=== PATIENT | male | born 1985 | race Caucasian/White ===

== ENCOUNTER 2017-06-06 05:44 | Emergency (ER) | payer BC ==
[2017-06-06 10:23] VITALS: BP 128/74
== END 2017-06-06 10:23 | disposition home or self-care (01) ==
LOC: ED 05:44
DX: S01.01XA Laceration without foreign body of scalp, initial encounter (principal); G93.9 Disorder of brain, unspecified; J45.909 Unspecified asthma, uncomplicated; W06.XXXA Fall from bed, initial encounter; Y93.89 Activity, other specified; Y92.89 Other specified places as the place of occurrence of the external cause; Y99.8 Other external cause status
CPT/HCPCS: 90715